=== PATIENT | male | born 1975 | race Asian ===

== ENCOUNTER 2017-09-14 13:32 | Emergency (ER) | payer OTHER ==
[~2017-09-14] VITALS: Ht 177.8 cm; Wt 75.0 kg
[2017-09-14] MEDS ORDERED: HYDROCODONE/ACETAMINOPHEN 10-325 MG TABLET PO ONE (14:45)
[2017-09-14 15:08] VITALS: BP 111/79
== END 2017-09-14 16:00 | disposition home or self-care (01) ==
LOC: EMS 13:33
DX: S62.615A Displaced fracture of proximal phalanx of left ring finger, initial encounter for closed fracture (principal); W21.05XA Struck by basketball, initial encounter; Y93.67 Activity, basketball; Y92.89 Other specified places as the place of occurrence of the external cause; Y99.8 Other external cause status
CPT/HCPCS: 26605; 26742; 99284